=== PATIENT | female | born 1965 | race Caucasian/White ===

== ENCOUNTER 2019-08-30 16:28 | Emergency (ER) | payer OTHER ==
[~2019-08-30] VITALS: Ht 154.9 cm; Wt 73.5 kg
--- OUTSIDE RECORDS SUMMARY | ~2019-08-30 | XMS | Clinical Summary ---
Demographics + + + | Address | [address] | | | [place] [address] | + + + | Home Phone | | + + + | Preferred Language | Unknown | + + + | Marital Status | | + + + | Mormon Affiliation | Unknown | + + + | Race | Unknown | + + + | Ethnic Group | Unknown | + + + Author + + + | Author | [facility] (Historical as of | | | 06-12-19) | + + + | Organization | [facility] (Historical as of | | | 06-12-19) | + + + | Address | Unknown | + + + | Phone | Unavailable | + + + Support + + +---------+ + | Name | Relationship | Address | Phone | + + +---------+ + | Sharlene Fontanez | ECON | Unknown | | + + +---------+ + Care Team Providers + +------+ + | Care Pedicab Driver Name | Role | Phone | + +------+ + PP | Unavailable | + +------+ + Allergies + + + + + + | Active Allergy | Reactions | Severity | Noted | Comments | | | | | Date | | + + + + + + | Penicillins | Rash | Medium | 12/26/19 | "pretty severe" | | | | | 19 | | + + + + + + Current Medications + + +-------+---------+------+------+-------+ | Prescription | Sig. | Disp. | Refills | Star | End | Statu | | | | | | t | Date | s | | | | | | Date | | | + + +-------+---------+------+------+-------+ | lisinopril | Take 5 mg by mouth | | | | | Activ | | (ZESTRIL) 5 MG | daily. | | | | | e | | tablet | | | | | | | + + +-------+---------+------+------+-------+ | estradiol | Take 0.5 mg by mouth | | | | | Activ | | (ESTRACE) 0.5 MG | daily. | | | | | e | | tablet | | | | | | | + + +-------+---------+------+------+-------+ | linagliptin | Take 5 mg by mouth | | | | | Activ | | (TRADJENTA) 5 MG | daily. | | | | | e | | tablet | | | | | | | + + +-------+---------+------+------+-------+ Active Problems No known active problems Social History + +-------+ +--------+------+ | Tobacco Use | Types | Packs/Day | Years | Date | | | | | Used | | + +-------+ +--------+------+ | Never Smoker | | | | | + +-------+ +--------+------+ + +---+---+---+ | Smokeless Tobacco: | | | | | Never Used | | | | + +---+---+---+ + + + | Sex Assigned at | Date Recorded | | | | + + + | Not on file | | + + + Last Filed Vital Signs + + + + | Vital Sign | Reading | Time Taken | + + + + | Blood Pressure | 100/60 | 12/25/2018 4:09 PM PST | + + + + | Pulse | 56 | 12/25/2018 4:09 PM PST | + + + + | Temperature | 36.5 C (97.7 F) | 12/25/2018 4:09 PM PST | + + + + | Respiratory Rate | 18 | 12/25/2018 4:09 PM PST | + + + + | Oxygen Saturation | 100% | 12/25/2018 4:09 PM PST | + + + + | Inhaled Oxygen | - | - | | Concentration | | | + + + + | Weight | 98.4 kg (217 lb) | 12/25/2018 4:09 PM PST | + + + + | Height | - | - | + + + + | Body Mass Index | - | - | + + + + Plan of Treatment + + + + + | Health Maintenance | Due Date | Last Done | Comments | + + + + + | Vaccine: | | | | | Dtap/Tdap/Td (1 - | 6 | | | | Tdap) | | | | + + + + + | Cervical Cancer | | | | | Screening (Pap) | 7 | | | + + + + + | Breast Cancer | | | | | Screening | 7 | | | | (Mammogram) | | | | + + + + + | Colon Cancer | | | | | Screening | 7 | | | | (Colonoscopy) | | | | + + + + + | Vaccine: Zoster (1 | | | | | of 2) | 7 | | | + + + + + | Vaccine: Influenza | | | | | (#1) | 9 | | | + + + + + Results Not on filefrom Last 3 Months Insurance + +--------+ +------+-------+---------+ | Payer | Benefi | Subscriber | Type | Phone | Address | | | t Plan | ID | | | | | | / | | | | | | | Group | | | | | + +--------+ +------+-------+---------+ | [employer] | [employer] | [id number] | | | | | | HEALTH | | | | | | | PLAN | | | | | + +--------+ +------+-------+---------+ + +--------+ +--------+ + + | Guarantor Name | Accoun | Relation to | Date | Phone | Billing Address | | | t Type | Patient | of | | | | | | | | | | + +--------+ +--------+ + + | CLAUDIA SHEEHAN | Person | Self [birth year] Home: | [address] | | | [place] | | [phone] | [phone] [place] | | | [place] | | | [phone] | [phone] | + +--------+ +--------+ + +
--- OUTSIDE RECORDS SUMMARY | ~2019-08-30 | XMS | Clinical Summary ---
Demographics + + + | Address | [address] | | | [place] [address] | + + + | Home Phone | | + + + | Preferred Language | Unknown | + + + | Marital Status | | + + + | Baptist Affiliation | Unknown | + + + | Race | Unknown | + + + | Ethnic Group | Unknown | + + + Author + + + | Author | [facility] (Historical as of | | | 06-12-19) | + + + | Organization | [facility] (Historical as of | | | 06-12-19) [...] Team Providers + +------+ + | Care Teletype Installer Name | Role | Phone | + [...] | [employer] | [employer] | [id number] | | | | | | HEALTH [...] | | | eric | | | [phone] | [phone] | + +--------+ +--------+ + +
[2019-08-30] MEDS ORDERED: ESTRACE0.5 MG PO (17:22)
[2019-08-30] MEDS ORDERED: LOVASTATIN10 MG PO (17:22)
[2019-08-30] MEDS ORDERED: OMEPRAZOLE20 MG PO (19:58)
== END 2019-08-30 20:17 | disposition home or self-care (01) ==
LOC: ED 16:28
DX: R10.13 Epigastric pain (principal); R11.0 Nausea; E11.9 Type 2 diabetes mellitus without complications; Z98.84 Bariatric surgery status; Z03.89 Encounter for observation for other suspected diseases and conditions ruled out
CPT/HCPCS: 74177; 80053; 83690; 85025; 99284-25

== ENCOUNTER 2021-01-29 21:21 | Emergency (ER) | payer OTHER ==
[~2021-01-29] VITALS: Ht 154.9 cm; Wt 98.0 kg
[~2021-01-29 21:21] MED LIST: ESTRACE0.5 MG PO; LOVASTATIN10 MG PO; OMEPRAZOLE20 MG PO
--- NOTE | 2021-01-30 11:54 | EKG ---
[facility] [address] [facility] [place], [place] [address] Signed Sinus bradycardia Otherwise normal ECG No previous ECGs available Confirmed by DAVE SINGH DO ([id number]) on 01/30/2021 11:54:45 AM Electronically Signed By: DAVE SINGH DO 01/30/21 1154 PATIENT NAME: NINFA MENEZES QAMAR Electrocardiogram DATE OF : 69 PHYSICIAN: DAVE SINGH DO REPORT #: [id number] REPORT IS CONFIDENTIAL AND NOT TO BE RELEASED WITHOUT AUTHORIZATION
== END 2021-01-30 01:46 | disposition home or self-care (01) ==
LOC: ED 21:21
DX: R07.2 Precordial pain (principal); E11.9 Type 2 diabetes mellitus without complications; Z88.0 Allergy status to penicillin; Z88.2 Allergy status to sulfonamides; Z79.899 Other long term (current) drug therapy
CPT/HCPCS: 71045; 80053; 83735; 84484; 85025; 85379; 85610; 93005; 93010; 99285-25